=== PATIENT | female | born 1965 | race Caucasian/White ===

== ENCOUNTER → 2016-12-29 | Outpatient (CLI) | payer SELFPAY ==
--- NOTE | 2016-12-29 14:29 | RAD ---
HISTORY: Cervical radiculopathy Study: Cervical spine AP, lateral, odontoid, both obliques Comparison: None Findings: The prevertebral soft tissues are normal. The alignment is normal. The vertebral bodies are of averag e height. The disc spaces are preserved. The posterior elements are intact. The neural foramina are p atent. The joints are normal. IMPRESSION: No significant abnormality Reported By:
--- NOTE | 2016-12-29 14:33 | RAD ---
HISTORY: Back pain Study: Complete lumbar spine series Comparison: None Findings: Normal alignment of the lumbar spine is maintained. Vertebral body heights are preserved. The disc spaces appear normal.No evidence for acute fracture or subluxation. Mild facet degenerative changes a re seen at L4-5 and L5-S1 without listhesis. IMPRESSION: 1. Mild lower lumbar facet degenerative changes. No acute osseous abnormality. Reported By:
--- NOTE | 2016-12-31 10:31 | RAD ---
HISTORY: Back pain Study: 5 views of the thoracic spine. Comparison: None Findings: Grossly normal alignment of the thoracic spine. The disk space height is maintained. Vertebral body heights are grossly maintained. IMPRESSION: 1. Unremarkable examination of the thoracic spine. Reported By:
== END ==
LOC: RAD 13:33
PROVIDERS: ATTEND Physician Assistant
DX: M54.12 Radiculopathy, cervical region (principal); M54.5 Low back pain
CPT/HCPCS: 72050; 72072; 72110

== ENCOUNTER → 2017-01-22 | Outpatient (CLI) | payer SELFPAY | LOC: RAD 10:15 | PROVIDERS: ATTEND Physician Assistant | DX: Z12.31 Encounter for screening mammogram for malignant neoplasm of breast (principal) | CPT/HCPCS: 77067 ==